=== PATIENT | male | born 1995 | race Caucasian/White ===

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

== ENCOUNTER 2017-01-23 00:20 | Emergency (ER) | payer BC ==
[2017-01-23] MEDS ORDERED: SODIUM CHLORIDE 0.9% 500 ML IV STA (00:31)
--- NOTE | 2017-01-23 00:51 | ED ---
Overdose HPI - General Source: EMS Mode of arrival: EMS - History of Present Illness Complaint: accidental overdose Onset/Timin -: hour(s) Context: Accidental Overdose: wanted to get high Treatments Prior to Arrival: narcan <iMguel Kan - Last Filed: 01/23/17 07:23> <Slick Mederos - Last Filed: 01/23/17 18:53> - General Chief Complaint: Overdose Stated Complaint: Drug Overdose Time Seen by Provider: 01/23/17 00:22 - History of Present Illness Initial Comments: This patient is a 21-year-old man who is brought by EMS to be evaluated for altered mental status with suspected overdose. EMS to been called to the scene of 2 unresponsive people in a car. They did find some empty [id number] medication miles, including a cough medication containing dextromethorphan and also Benadryl. The patient on the scene was arousable enough to admit to smoking marijuana as well. The patient is arousable and able to state that he is at the hospital. He is denying pain or dyspnea. He is otherwise not giving too much history. Denies suicidal intent with the ingestion. (Miguel Kan) - Related Data Previous Rx's Medication Instructions Recorded Venlafaxine HCl ER [Effexor XR] 150 mg PO DAILY 30 Days 11/10/16 Allergies Allergy/AdvReac Type Severity Reaction Status Date / Time No Known Allergies Allergy Verified 01/23/17 07:50 Review of Systems ROS Other: All systems not noted in ROS Statement are negative. Limitations: ROS unobtainable due to patients medical condition Respiratory: Denies: dyspnea Cardiovascular: Denies: chest pain Gastrointestinal: Denies: abdominal pain Neurological: Denies: headache <Miguel Kan - Last Filed: 01/23/17 07:23> ROS Other: All systems not noted in ROS Statement are negative. <Slick Mederos - Last Filed: 01/23/17 18:53> ROS Statement: Those systems with pertinent positive or pertinent negative responses have been documented in the HPI. Past Medical History Past Medical History: No Reported History History of Any Multi-Drug Resistant Organisms: None Reported Past Surgical History: No Surgical Hx Reported Past Anesthesia/Blood Transfusion Reactions: No Reported Reaction Past Psychological History: Anxiety, Depression Smoking Status: Never smoker Past Alcohol Use History: Occasional Past Drug Use History: Marijuana <Miguel Kan - Last Filed: 01/23/17 07:23> General Exam General appearance: in no apparent distress, other (Somnolent but arousable) Head exam: Present: atraumatic, normocephalic Eye exam: Present: PERRL, EOMI, nystagmus. Absent: scleral icterus, conjunctival injection ENT exam: Present: mucous membranes dry Neck exam: Present: normal inspection, full ROM Respiratory exam: Present: normal lung sounds bilaterally. Absent: respiratory distress, wheezes, rales, rhonchi, stridor Cardiovascular Exam: Present: normal rhythm, tachycardia (Rate is 104 bpm my exam), normal heart sounds. Absent: systolic murmur, diastolic murmur, rubs, gallop GI/Abdominal exam: Present: soft. Absent: distended, tenderness, guarding, rebound, rigid, mass Extremities exam: Present: normal inspection, normal capillary refill. Absent: pedal edema, calf tenderness Back exam: Present: normal inspection. Absent: vertebral tenderness Neurological exam: Present: altered, CN II-XII intact, other (Patient is somnolent but does arouse to shaking. He follows one-step commands without any motor or sensory deficit. There is ataxia). Absent: oriented X3 (Patient is oriented to person and recognizes that he is in a hospital.), motor sensory deficit Skin exam: Present: warm, dry, intact, normal color. Absent: rash <DonMiguel garcia - Last Filed: 01/23/17 07:23> Medical Decision Making - Lab Data Result diagrams: 01/23/17 00:25 01/23/17 00:25 - EKG Data -: EKG Interpreted by Me EKG shows normal: sinus rhythm, axis, intervals (DC interval 132 ms. QRS duration 112 ms, QTC 445 ms), QRS complexes (There is an incomplete right bundle -branch block), ST-T waves (Normal normal) Rate: tachycardia (Rate 103 bpm) <LoretaMiguel - Last Filed: 01/23/17 07:23> - Lab Data Result diagrams: 01/23/17 00:25 01/23/17 00:25 <Slick Mederos - Last Filed: 01/23/17 18:53> - Medical Decision Making The patient's case was endorsed to me at our shift change. Patient will be transferred to [facility] for inpatient treatment as there is no facility here at this time. (Slick Mederos) - Lab Data Lab Results 01/23/17 01/23/17 01/23/17 Range/Units 00:25 00:25 12:08 WBC 9.9 (4.0-11.0) k/uL RBC 4.81 (4.30-5.90) m/uL Hgb 15.2 (13.0-17.5) gm/dL Hct 45.0 (39.0-53.0) % MCV 93.5 (80.0-100.0) fL MCH 31.6 (25.0-35.0) pg MCHC 33.8 (31.0-37.0) g/dL RDW 13.1 (11.5-15.5) % Plt Count 305 (150-450) k/uL Neutrophils % 74 % Lymphocytes % 15 % Monocytes % 8 % Eosinophils % 1 % Basophils % 0 % Neutrophils # 7.3 (1.3-7.7) k/uL Lymphocytes # 1.5 (1.0-4.8) k/uL Monocytes # 0.8 (0-1.0) k/uL Eosinophils # 0.1 (0-0.7) k/uL Basophils # 0.0 (0-0.2) k/uL Sodium 146 H (137-145) mmol/L Potassium 3.8 (3.5-5.1) mmol/L Chloride 109 H (98-107) mmol/L Carbon Dioxide 25 (22-30) mmol/L Anion Gap 12 mmol/L BUN 6 L (9-20) mg/dL Creatinine 0.80 (0.66-1.25) mg/dL Est GFR (MDRD) Af Amer >60 (>60 ml/min/1.73 sqM) Est GFR (MDRD) Non-Af >60 (>60 ml/min/1.73 sqM) Glucose 82 (74-99) mg/dL Calcium 9.9 (8.4-10.2) mg/dL Total Bilirubin 0.7 (0.2-1.3) mg/dL AST 19 (17-59) U/L ALT 27 (21-72) U/L Alkaline Phosphatase 93 (38-126) U/L Total Protein 8.0 (6.3-8.2) g/dL Albumin 4.9 (3.5-5.0) g/dL Salicylates <1.0 mg/dL Urine Opiates Screen Detected H (NotDetected) Ur Oxycodone Screen Not Detected (NotDetected) Urine Methadone Screen Not Detected (NotDetected) Ur Propoxyphene Screen Not Detected (NotDetected) Acetaminophen <10.0 ug/mL Ur Barbiturates Screen Not Detected (NotDetected) U Tricyclic Antidepress Not Detected (NotDetected) Ur Phencyclidine Scrn Not Detected (NotDetected) Ur Amphetamines Screen Not Detected (NotDetected) U Methamphetamines Scrn Not Detected (NotDetected) U Benzodiazepines Scrn Not Detected (NotDetected) Urine Cocaine Screen Not Detected (NotDetected) U Marijuana (THC) Screen Detected H (NotDetected) Serum Alcohol <10 mg/dL Disposition <Miguel Kan - Last Filed: 01/23/17 07:23> - Out of Hospital Transfer - Req. Specs Out of Hospital Transfer - Requested Specifics: Psychiatric Non-ICU <Slick Mederos - Last Filed: 01/23/17 18:53> Clinical Impression: Overdose, Depression, Suicidal ideation Disposition: TRANSFER TO PSYCH HOSP/UNIT Condition: Stable Referrals: Bryan Collins MD [Primary Care Provider] - 1-2 days
[2017-01-23 01:02] LABS: Basophils % (A) 0 %; CH 31.6; Eosinophils # (A) 0.1 k/uL (0-0.7); Eosinophils % (A) 1 %; HDW 2.41; HGB 15.2 gm/dL (13.0-17.5); Luc # (Auto) 0.22; Luc % (Auto) 2; Lymphocytes # (A) 1.5 k/uL (1.0-4.8); Lymphocytes % (A) 15 %; MCH 31.6 pg (25.0-35.0); MCHC 33.8 g/dL (31.0-37.0); MCV 93.5 fL (80.0-100.0); Mean Platelet Volume 6.8; Monocytes # (A) 0.8 k/uL (0-1.0); Monocytes % (A) 8 %; Neutrophils # (A) 7.3 k/uL (1.3-7.7); Neutrophils % (A) 74 %; RBC 4.81 m/uL (4.30-5.90); RDW 13.1 % (11.5-15.5); WBC 9.9 k/uL (4.0-11.0); WBC (Perox) 9.18
[2017-01-23 01:20] LABS: ALT 27 U/L (21-72); AST 19 U/L (17-59); Acetaminophen <10.0 ug/mL; Alcohol <10 mg/dL; Alkaline Phosphatase 93 U/L (38-126); Anion Gap 12 mmol/L; Blood Urea Nitrogen 6 mg/dL (9-20); Calcium 9.9 mg/dL (8.4-10.2); Carbon Dioxide 25 mmol/L (22-30); Chloride 109 mmol/L (98-107); Glucose 82 mg/dL (74-99); Non-African American GFR(MDRD) >60 (>60 ml/min/1.73 sqM); Potassium 3.8 mmol/L (3.5-5.1); Salicylate <1.0 mg/dL; Sodium 146 mmol/L (137-145); Total Bilirubin 0.7 mg/dL (0.2-1.3)
[2017-01-23 04:46] VITALS: RESP 18
[2017-01-23 18:15] VITALS: BP 139/66; PULSE 83; TEMP 98.3
== END 2017-01-23 19:00 ==
LOC: EC 00:20
DX: T48.3X2A Poisoning by antitussives, intentional self-harm, initial encounter (principal); T45.0X2A Poisoning by antiallergic and antiemetic drugs, intentional self-harm, initial encounter; F32.9 Major depressive disorder, single episode, unspecified; I45.10 Unspecified right bundle-branch block
CPT/HCPCS: 36415; 80053; 80306; 80320; 83520; 85025; 93005; 96360; 99285

== ENCOUNTER → 2022-05-04 | Outpatient (CLI) | payer BC ==
--- NOTE | 2022-05-05 07:16 | US ---
EXAMINATION TYPE: US scrotum with doppler. Grayscale and color Doppler Duplex imaging performed of gladys gayle scrotum. DATE OF EXAM: 05/04/2022 COMPARISON: NONE CLINICAL HISTORY: R36.1 HEMATOSPERMIA. Patient states having a few incidences of hematospermia. No i njury EXAM MEASUREMENTS: TESTICLES: Right Testicle: 5.2 x 4.6 x 2.8 cm Left Testicle: 4.7 x 3.7 x 2.6 cm EPIDIDYMIS HEAD: Right Epididymis: 1.1 x 0.9 x 0.7 cm Left Epididymis: 1.1 x 1.3 x 1.3 cm Doppler performed to assess for testicular vascularity; good bilateral color flow and waveforms are s een. There is no evidence of testicular torsion. Presence of hydroceles: no Presence of varicoceles: bilateral IMPRESSION: Varicoceles.
== END | disposition home or self-care (01) ==
LOC: RADUSWWP 16:10
PROVIDERS: ATTEND Family Medicine
DX: I86.1 Scrotal varices (principal)
CPT/HCPCS: 76870; 93975